=== PATIENT | male | born 1980 | race Caucasian/White ===

== ENCOUNTER 2017-09-08 18:15 | Emergency (ER) | payer SELFPAY ==
[~2017-09-08] VITALS: Ht 180.3 cm; Wt 90.0 kg
[2017-09-08 18:27] VITALS: BP 120/70; PULSE 72; RESP 16; TEMP 98.5; O2SAT 98
--- NOTE | 2017-09-08 18:43 | PD ---
HPI Chief Complaint: Skin Problem Time Seen by Provider: 18:33 Travel History International Travel<30 days: No Contact w/Intl Traveler<30days: No Traveled to known affect area: No History of Present Illness HPI 37-year-old male presents to the emergency department with concern of a pinpoint blemish to his left mid arm and a pinpoint, blister type skin colored blemish to his left third finger that has been there for a couple weeks. He is concerned he has skin herpes and wants to be tested. He denies fever, vomiting. Denies the blemishes are itchy or painful. Has not taken any medications or try any treatments to alleviate his symptoms. Symptoms are mild in severity. No known aggravating or relieving factors. No known allergies. Denies significant past medical history. No primary care provider. Has no other medical complaints. No other modifying factors or associated signs and symptoms. Review of Systems Except as stated in HPI: all other systems reviewed are Neg Physical Exam Narrative GENERAL: Well-nourished, well-developed male patient, in no acute distress SKIN: Warm and dry. Pinpoint pimple-like blemish to his left lateral elbow area ; it is red in color but does not appear infectious; without drainage. Pinpoint , blister type skin colored blemish to his left third finger; without erythema, edema, drainage. Left upper extremity is supple and non-tense with 2+ radial pulse and sensory intact without erythema or edema. No lymphangitis. HEAD: Atraumatic. Normocephalic. EYES: Pupils equal and round. No scleral icterus. No injection or drainage. ENT: Mucosa pink and moist. Airway patent. NECK: Trachea midline. CARDIOVASCULAR: Regular rate. 3+ radial pulses. RESPIRATORY: No accessory muscle use. GASTROINTESTINAL: Obese. MUSCULOSKELETAL: No obvious deformities. No clubbing. No cyanosis. No edema. NEUROLOGICAL: Awake and alert. Oriented 3. No obvious cranial nerve deficits. Motor grossly within normal limits. Normal speech. PSYCHIATRIC: Appropriate mood and affect; insight and judgment normal. Data Data Last Documented VS Vital Signs Date Time Temp Pulse Resp B/P (MAP) Pulse Ox O2 Delivery O2 Flow Rate FiO2 09/08/17 18:27 98.5 72 16 120/70 (87) 98 MDM Medical Screen Exam Complete: Yes Emergency Medical Condition: No Differential Diagnosis Pimple, minuscule blister Narrative Course 37-year-old male with a pimple-like lesion to his left elbow area and a minuscule blister to his left third finger. No signs of infection. Vital signs are stable and the patient is stable for outpatient follow-up and treatment. The patient has no urgent or emergent medical complaints. There is no emergent or urgent medical need at this time. I instructed the patient to follow up with their primary care provider. A medical screening exam was performed: At the time of evaluation the presenting medical condition was determined not to be of an emergent nature. The patient was given the option of receiving additional care, but declined. Patient was given options for additional community resources from which to obtain care. The Patient Has Been advised to seek medical attention for their presenting complaint. The patient has been advised to return to the ER at any time if an emergent condition develops. Primary Impression: Encounter for medical screening examination Condition: Stable Nataly Kenyon Sep 08, 2017 18:43
== END 2017-09-08 18:49 | disposition left against medical advice (07) ==
LOC: NEPK 18:15
DX: S60.423A Blister (nonthermal) of left middle finger, initial encounter (principal); R23.8 Other skin changes; X58.XXXA Exposure to other specified factors, initial encounter
CPT/HCPCS: 99281